=== PATIENT | female | born 1980 ===

== ENCOUNTER 2023-07-13 06:00 | Outpatient (RCR) | payer OTHER, SELFPAY | END 2023-08-11 23:59 | disposition home or self-care (01) | LOC: MPS 06:00 | PROVIDERS: Visit Provider Physical Medicine & Rehabilitation | DX: F07.81 Postconcussional syndrome (principal) | CPT/HCPCS: 92507; 92523; 97110; 97140; 97162; 97530; G0283 ==

== ENCOUNTER 2023-07-29 06:00 | Outpatient (RCR) | payer OTHER, SELFPAY | END 2023-08-11 23:59 | disposition home or self-care (01) | LOC: MPS 06:00 | PROVIDERS: Visit Provider Physical Medicine & Rehabilitation | DX: M54.2 Cervicalgia (principal); F07.81 Postconcussional syndrome; G31.84 Mild cognitive impairment of uncertain or unknown etiology | CPT/HCPCS: 92507; 92523; 97110; 97140; 97162; 97530; G0283 ==

== ENCOUNTER 2023-08-12 06:00 | Outpatient (RCR) | payer OTHER, SELFPAY | END 2023-09-11 23:59 | disposition home or self-care (01) | LOC: MPS 06:00 | PROVIDERS: Visit Provider Physical Medicine & Rehabilitation | DX: M54.2 Cervicalgia (principal); G31.84 Mild cognitive impairment of uncertain or unknown etiology | CPT/HCPCS: 92507; 97110; 97140; 97530; G0283 ==

== ENCOUNTER 2023-09-12 06:00 | Outpatient (RCR) | payer OTHER, SELFPAY | END 2023-10-12 23:59 | disposition home or self-care (01) | LOC: MPS 06:00 | PROVIDERS: Visit Provider Physical Medicine & Rehabilitation | DX: M54.2 Cervicalgia (principal); G31.84 Mild cognitive impairment of uncertain or unknown etiology | CPT/HCPCS: 92507; 97110; 97140; G0283 ==

== ENCOUNTER 2023-10-13 06:00 | Outpatient (RCR) | payer OTHER, SELFPAY | END 2023-11-11 23:59 | disposition home or self-care (01) | LOC: MPS 06:00 | PROVIDERS: Visit Provider Physical Medicine & Rehabilitation | DX: M54.2 Cervicalgia (principal); G31.84 Mild cognitive impairment of uncertain or unknown etiology | CPT/HCPCS: 92507; 97110; 97140; G0283 ==

== ENCOUNTER 2023-11-12 06:00 | Outpatient (RCR) | payer OTHER, SELFPAY | END 2023-12-12 23:59 | disposition home or self-care (01) | LOC: MPS 06:00 | PROVIDERS: Visit Provider Physical Medicine & Rehabilitation | DX: M54.2 Cervicalgia (principal); G31.84 Mild cognitive impairment of uncertain or unknown etiology | CPT/HCPCS: 92507; 97110; G0283 ==

== ENCOUNTER 2023-12-13 06:00 | Outpatient (RCR) | payer OTHER, SELFPAY | END 2024-01-11 23:59 | disposition home or self-care (01) | LOC: MPS 06:00 | PROVIDERS: Visit Provider Physical Medicine & Rehabilitation | DX: M54.2 Cervicalgia (principal); G31.84 Mild cognitive impairment of uncertain or unknown etiology | CPT/HCPCS: 92507; 97110; 97140; G0283 ==